=== PATIENT | male | born 1960 ===

== ENCOUNTER 2016-07-27 15:04 | Inpatient (IN) | payer MEDICAID ==
[2016-07-27 15:04] VITALS: BMI 25.9
--- NOTE | 2016-07-27 15:31 | ED PDOC ---
HPI:STROKE - Time Time: 15:29 - Historian Historian: Family - Chief Complaint Chief Complaint: Arm weakness, other (Seizure) - Onset Date: 07/27/16 Time: 14:00 - Timing Timing: Currently Symptomatic - Context Context: Sitting - Location Locate left: Upper extremity - Radiation Radiation: None - Severity of pain Maximum severity:: Moderate Pain Scale:: 0 Severity Current: Moderate Pain Scale:: 0 - Exacerbated by Exacerbated by:: Nothing - Relieved by Relieved by:: Nothing - TPA Positive for Contraindication: Yes Reason tPA is not being Administered: Improvement in weakness left upper ext NIHSS Stroke Scale - How Severe is the Stroke Level of Consciousness: 0=Alert LOC to Questions: 0=Both comments correct LOC to commands: 0=Obeys both correctly Best Gaze: 0=Normal Visual: 0=No visual loss Facial: 0=Normal Motor Arm - Left: 3=No effort against gravity (falls immediately) Motor Arm - Right: 0=No drift Motor Leg - Left: 0=No drift Motor Leg - Right: 0=No drift Limb Ataxia: 0=Absent Sensory: 0=Normal Best Language: 0=No aphasia Dysarthia: 0=Normal articulation Extinction & Inattention (Neglect): 0=Normal, no object Score: 3 rTPA Inclusion/Exclusion - Refusal of Treatment Patient Refused Treatment: No - Inclusion Criteria for Altepase Patient is 18 years or Older: Yes The Clinical Diagnosis of Ischemic Stroke That is Causing a Potentially Disabling Neurological Deficit: Yes Time of Onset is Well Established to be Less Than 270 Minute Before Treatment Would Begin: Yes Risk/Benefit Discussed With Patient/Family Member Present: Yes Past Medical History Vital Signs: Last Vital Signs Temp 98.1 F 07/27/16 15:10 Pulse 65 07/27/16 15:10 Resp 20 07/27/16 15:10 BP 146/88 07/27/16 15:10 Pulse Ox 100 07/27/16 15:10 - Medical History PMH: Asthma, CVA, Diabetes, HTN, Hypercholesterolemia, Seizures Denies: HIV, Chronic Kidney Disease - Family History Family History: States: Unknown Family Hx - Immunization History Hx Tetanus Toxoid Vaccination: Yes (>5yrs) Hx Influenza Vaccination: No Hx Pneumococcal Vaccination: No - Home Medications Home Medications: Ambulatory Orders Medication Instructions Recorded Amlodipine Besylate/Benazepr 1 cap PO DAILY 07/16/14 [Lotrel 5 mg-20 mg] Cyclobenzaprine HCl [Flexeril] 1 tab PO TID PRN #25 tab 07/16/14 Metformin Hydrochloride [Metformin] 500 mg PO BID 07/16/14 Naproxen [Naprosyn] 1 tab PO BID PRN #25 tab 07/16/14 oxyCODONE/Acetaminophen [Percocet 1 tab PO QID PRN #20 tab 07/16/14 5/325 mg Tab] Ibuprofen [Motrin] 600 mg PO Q6 #25 tab 02/09/15 Aspirin [Ecotrin] 81 mg PO DAILY 11/09/15 Docusate [Colace] 100 mg PO DAILY 11/09/15 Lorazepam [Ativan] 1 mg IV Q4 PRN 11/09/15 Lorazepam [Ativan] 2 mg IV Q4 PRN 11/09/15 Pravastatin Sodium [Pravachol] 10 mg PO HS 11/09/15 Topiramate [Topamax] 50 mg PO BID 11/09/15 Valproic Acid (As Sodium Salt) 500 mg IV Q12 11/09/15 [Valproate Sodium] Metoprolol Tartrate [Lopressor] 25 mg PO Q12 #0 tab 11/23/15 - Allergies Allergies/Adverse Reactions: Allergies Allergy/AdvReac Type Severity Reaction Status Date / Time No Known Allergies Allergy Verified 07/27/16 15:10 Review of Systems ROS Statement: Except As Marked, All Systems Reviewed And Found Negative Neurological: Positive for: Weakness, Seizures Physical Exam - Reviewed Nursing Documentation Reviewed: Yes Vital Signs Reviewed: Yes - Physical Exam Appears: Positive for: Non-toxic, No Acute Distress Head Exam: Positive for: ATRAUMATIC, NORMAL INSPECTION, NORMOCEPHALIC Skin: Positive for: Normal Color, Warm, DRY Eye Exam: Positive for: EOMI, Normal appearance, PERRL ENT: Positive for: Normal ENT Inspection Neck: Positive for: Normal, Painless ROM Cardiovascular/Chest: Positive for: Regular Rate, Rhythm Respiratory: Positive for: CNT, Normal Breath Sounds Gastrointestinal/Abdominal: Positive for: Normal Exam, Bowel Sounds, Soft Back: Positive for: Normal Inspection Extremity: Positive for: Normal ROM Neurologic/Psych: Positive for: Alert, Oriented, Motor/Sensory Deficits (Left upper ext weakness) - ECG O2 Sat by Pulse Oximetry: 100 Medical Decision Making Medical Decision Making: Re-eval 4PM slight movement left upper ext. Discussed with neuro Dr. Cid, based on improvement, not candidate for TPA. Disposition - Clinical Impression Clinical Impression: CVA (cerebral vascular accident), HTN (hypertension), DM2 (diabetes mellitus, type 2) - Patient ED Disposition Is Patient to be Admitted: Yes - Disposition Disposition Time: 16:07 Condition: FAIR - POA Present On Arrival: None
--- NOTE | 2016-07-27 15:57 | CT ---
PROCEDURE: CT HEAD WITHOUT CONTRAST. HISTORY: code stroke COMPARISON: None available. TECHNIQUE: Axial computed tomography images were obtained through the head/brain without intravenous contrast. Radiation dose: Total exam DLP = mGy-cm. FINDINGS: HEMORRHAGE: No intracranial hemorrhage. BRAIN: There is a moderate-sized area of encephalomalacia seen in the right frontoparietal region related to prior chronic infarct. There is additionally some mild encephalomalacia seen in the right internal capsule and basal ganglia region and white matter tracts. No intracranial hemorrhage is noted. Posterior fossa is limited by motion although no infarct is seen. No intracranial hemorrhage is identified. No cortical effacement is seen. No atrophy or chronic microvascular ischemic changes. VENTRICLES: Unremarkable. No hydrocephalus. CALVARIUM: Unremarkable. PARANASAL SINUSES: Minimal mucosal thickening. MASTOID AIR CELLS: Unremarkable as visualized. No inflammatory changes. OTHER FINDINGS: Retro-orbital regions are unremarkable. No extra-axial collections seen. IMPRESSION: No evidence of recent infarct or intracranial hemorrhage. Moderate area of chronic encephalomalacia in the right frontoparietal region with additional white matter infarcts or encephalomalacia in the right cerebral hemisphere. Mild scattered small vessel changes.
--- NOTE | 2016-07-27 16:01 | RAD ---
HISTORY: cva COMPARISON: No prior. FINDINGS: LUNGS: Mild crowding is seen at the lung bases. There appears to be scarring and/or prior trauma within the right mid lung field. Trachea is midline. PLEURA: No significant pleural effusion identified, no pneumothorax apparent. CARDIOVASCULAR: Normal. OSSEOUS STRUCTURES: Probable chronic posttraumatic or postsurgical changes of the right tejal thorax and lower left ribs. VISUALIZED UPPER ABDOMEN: Normal. OTHER FINDINGS: None. IMPRESSION: No appreciable CHF or infiltrate.
[2016-07-27 16:02] LABS: BASO # 0.2 K/uL (0.0-0.2); BASO % 2.9 % (0.0-2.0); EOS # 1.6 K/uL (0.0-0.7); EOS % 22.6 % (0.0-4.0); HEMATOCRIT 44.1 % (35.0-51.0); LYMPH # 2.2 K/uL (1.0-4.3); LYMPH % 31.9 % (20.0-40.0); MEAN CELL VOLUME 88.3 fl (80.0-94.0); MEAN CORPUSCULAR HGB CONC 32.8 g/dL (33.0-37.0); MEAN PLATELET VOLUME 11.4 fl (7.2-11.7); MONO # 0.6 K/uL (0.0-0.8); MONO % 8.4 % (0.0-10.0); NEUT # 2.4 K/uL (1.8-7.0); NEUT % 34.2 % (50.0-75.0); PLATELET COUNT 168 K/uL (130-400); RED CELL DISTRIBUTION WIDTH 14.8 % (11.5-14.5); WHITE BLOOD COUNT 6.9 K/uL (4.8-10.8)
[2016-07-27 16:11] LABS: ALB/GLOB RATIO 1.2 (1.0-2.1); ALKALINE PHOSPHATASE 75 U/L (38-126); ALT/SGPT 37 U/L (21-72); AST/SGOT 35 U/L (17-59); BILIRUBIN,TOTAL 0.5 mg/dl (0.2-1.3); BLOOD UREA NITROGEN 19 mg/dl (9-20); CALCIUM 10.9 mg/dL (8.4-10.2); CARBON DIOXIDE 22 mmol/L (22-30); CHLORIDE 110 mmol/L (98-107); CHOLESTEROL 107 mg/dL (0-199); GFR AFRICAN-AMERICAN > 60; GLUCOSE,RANDOM 162 mg/dL (75-110); POTASSIUM 4.2 MMOL/L (3.6-5.0); SODIUM 142 mmol/l (132-148)
[2016-07-27 16:49] LABS: PARTIAL THROMBOPLASTIN TIME 28.3 SECONDS (23.3-32.5)
[2016-07-27] MEDS ORDERED: levETIRAcetam 100 MG in Sodium Chloride 0.9% 100 ML IVPB ONE (17:50)
[2016-07-27] MEDS ORDERED: levETIRAcetam 1,000 MG in Sodium Chloride 0.9% 100 ML IVPB ONE (17:52)
--- NOTE | 2016-07-27 18:36 | CON ---
DATE: 07/27/2016 TIME OF EVALUATION: 6:00 p.m. REASON FOR THE CONSULTATION: Seizures. CHIEF COMPLAINT: The patient was brought in by family members with a history of witnessed left arm j erky movement which lasted for about a few minutes. Similar episodes had happened with a change in m ental status while he was in the Emergency Room. The patient was given Ativan to control his involun tary movements. HISTORY OF PRESENT ILLNESS: The patient is a 56-year-old male who had a stroke manifesting with left-sided hemiplegia, being admitted in [facility]; been transferred here in [facility]. Around that time he had seizures; been placed on dual medication, Topamax and Depakote. The pat ient controlled the seizures ever since, and this morning he had seizures and during the time offered breakfast. The patient was brought into the [facility]. He had another epis ode, which was recurrent. The patient was given Ativan at that point to break the seizures. PAST MEDICAL HISTORY: Stroke, frq-zchwqbm-ypgujmou mellitus, hypertension, dyslipidemia, seizures. PERSONAL HISTORY: Denies smoking or alcohol use. ALLERGIES: No known allergies. REVIEW OF SYSTEMS: As per H and P. MEDICATIONS: Medicine was switched to Keppra for his seizures. VITAL SIGNS: Blood pressure 147/79, mean arterial pressure of 101, respiratory rate 16, temperature afebrile. NECK: Supple. No carotid bruit. HEART SOUNDS: Irregular. CHEST: Fair air entry. EXTREMITIES: Left side diffuse atrophy both proximally and distally. NEUROLOGIC EXAMINATION: The patient is examined in the presence of his family members. He is awake, alert, oriented to person. He is communicable only in Croatian. He follows one-step command. MENTAL STATUS EXAMINATION: As stated above. CRANIAL NERVE EXAMINATION: Visual field intact. Pupil reactive to light, extraocular movements inta ct. No facial sensory deficit. Facial asymmetry manifesting with flattening of the left nasolabial fold. Hearing seems to be intact. Good gag. MOTOR EXAMINATION: Left-side hemiparesis, arm more than his legs. DEEP TENDON REFLEXES: Hyperreflexic on the left side. Left plantars are upgoing. SENSORY EXAMINATION: Decreased pain on his left side to compare with the right side. COORDINATION: Xwihsr-ajtb-girewa test is intact on the right side. Left side is dysmetria proportio adele to his weakness. GAIT: Deferred at this time. CONCLUSION: Upon reviewing his history and neurological examination, the patient has been presenting with recurrent seizures which is probably secondary from his old stroke. Medication may be subthera peutic. WORKUP: A CT of the head: Right frontoparietal encephalomalacia from his old stroke. BLOOD WORKUP: WBC 6.9, hemoglobin 14.5, hematocrit 44.1, platelet 168. PT 12.1, INR 1.16, PTT 28.3. Sodium 142, potassium 4.2, chloride 110, BUN 19, creatinine 0.9. GFR more than 60. Random glucose 162, calcium 10.9, cholesterol 107, LDL 48, HDL 36. RECOMMENDATIONS: 1. Because of Topamax and Depakote for his age, which may be not a promising drug for his seizure, I would like to switch to Keppra loading dose with 1000, followed with 500 mg twice a day. 2. EEG. 3. MRI of the brain also scheduled to rule out any ischemic process. The patient should be kept on fall precaution and DVT prophylaxis. If the patient is stable for the next 24-hour period with the Keppra, the patient can be discharged, and should have followup with it as outpatient. The Keppra dose at present, he is getting IV. That IV can be switched to p.o. the s day dose. Chano Cid MD cc: [id number] TT: 07/27/2016 18:36:48 Confirmation # [id number] Dictation # [id number]
[2016-07-27 19:15] LABS: BASOPHIL 3 % (0-2); EOSINOPHIL 22 % (0-7); NEUTROPHIL 36 % (42-75); REACTIVE LYMPHOCYTES 1 % (0-0); TOTAL CELLS COUNTED 100
[2016-07-27 19:16] LABS: LARGE PLATELETS PRESENT
[2016-07-27] MEDS ORDERED: levETIRAcetam 500 MG in Sodium Chloride 0.9% 100 ML IVPB SCH (21:00)
[2016-07-28] MEDS ORDERED: diaZEpam 10 mg/2 ml Inj IM PRN (05:29)
[2016-07-28] MEDS: levETIRAcetam 500 MG in Sodium Chloride 0.9% 100 ML IVPB SCH ×2 (06:05→18:15)
[2016-07-28 09:13] LABS: BASO # 0.2 K/uL (0.0-0.2); BASO % 1.9 % (0.0-2.0); EOS # 1.7 K/uL (0.0-0.7); EOS % 20.8 % (0.0-4.0); HEMATOCRIT 42.7 % (35.0-51.0); LYMPH # 2.3 K/uL (1.0-4.3); LYMPH % 27.2 % (20.0-40.0); MEAN CELL VOLUME 88.5 fl (80.0-94.0); MEAN CORPUSCULAR HEMOGLOBIN 28.6 pg (27.0-31.0); MEAN CORPUSCULAR HGB CONC 32.4 g/dL (33.0-37.0); MONO # 0.7 K/uL (0.0-0.8); MONO % 7.8 % (0.0-10.0); NEUT # 3.6 K/uL (1.8-7.0); NEUT % 42.3 % (50.0-75.0); NRBC % 0.2 % (0.0-0.0); PLATELET COUNT 170 K/uL (130-400); RED CELL DISTRIBUTION WIDTH 14.9 % (11.5-14.5); WHITE BLOOD COUNT 8.4 K/uL (4.8-10.8)
[2016-07-28 09:45] LABS: ALB/GLOB RATIO 1.1 (1.0-2.1); ALKALINE PHOSPHATASE 69 U/L (38-126); ALT/SGPT 40 U/L (21-72); AST/SGOT 24 U/L (17-59); BILIRUBIN,TOTAL 0.4 mg/dl (0.2-1.3); BLOOD UREA NITROGEN 15 mg/dl (9-20); CALCIUM 10.4 mg/dL (8.4-10.2); CARBON DIOXIDE 19 mmol/L (22-30); CHLORIDE 113 mmol/L (98-107); GFR AFRICAN-AMERICAN > 60; GLUCOSE,RANDOM 89 mg/dL (75-110); POTASSIUM 3.9 MMOL/L (3.6-5.0); SODIUM 137 mmol/l (132-148); TOTAL PROTEIN 7.2 G/DL (6.3-8.2)
--- NOTE | 2016-07-28 10:30 | CP.PCM.HP ---
History of Present Illness - History of Present Illness History of Present Illness: admitted for code bat after having seizure like actiivity at home. pt started w / seizures after having hemorrhagic cva 1 yr ago. was on topamax. was w/o seizures until yesterday when he had 3x and alled 911. ct results nad bw noted. depakote level is < 10. spoke w/ dr wahl-neuro who states this was not a cva but a seizure. mri/eeg can be done outpt if pt is stable. pt wishes to have venous duplex to assess for clots as he is c/o pain to lle and that is where clots have formed before. no swelling, neagative homans sign.rue/rle 4-5/ 5. lue2/5, lle 4/5. speech clear. mentating well. offered/refused carmen states he wants to go home and cont outpt rehab. has outpt pcp and neuro. no seizure like activity over night. Present on Admission - Present on Admission Any Indicators Present on Admission: Yes History of Uncontrolled Diabetes: Yes Review of Systems - Musculoskeletal Musculoskeletal: As Per HPI, Muscle Weakness - Neurological Neurological: As Per HPI, Convulsions, Focal Weakness, Weakness Past Patient History - Infectious Disease Hx of Infectious Diseases: None - Tetanus Immunizations Tetanus Immunization: Unknown - Past Medical History & Family History Past Medical History?: Yes - Past Social History Smoking Status: Never Smoked - CARDIAC Hx Cardiac Disorders: Yes Hx Angina: No Hx Atrial Fibrillation: No Hx Cardia Arrhythmia: No Hx Circulatory Problems: No Hx Congestive Heart Failure: No Hx Heart Attack: No Hx Heart Murmur: No Hx Heart Transplant: No Hx Hypercholesterolemia: Yes Hx Hypertension: Yes Hx Hypotension: No Hx Internal Defibrillator: No Hx Mitral Valve Prolapse: No Hx Pacemaker: No Hx Peripheral Edema: No Hx Peripheral Vascular Disease: No - PULMONARY Hx Respiratory Disorders: No Hx Asthma: Yes Hx Bronchitis: No Hx Chronic Obstructive Pulmonary Disease (COPD): No Hx Emphysema: No Hx Lung Cancer: No Hx Pneumonia: No Hx Pulmonary Edema: No Hx Pulmonary Embolism: No Hx Respiratory Aspiration: No Hx Respiratory Tract Infection: No Hx Sleep Apnea: No Hx Tuberculosis: No - NEUROLOGICAL Hx Neurological Disorder: Yes Hx Alzheimer's Disease: No HX Cerebrovascular Accident: Yes Hx Dementia: No Hx Dizziness: No Hx Meningitis: No Hx Migraine: No Hx Multiple Sclerosis: No Hx Paralysis: No Hx Parkinson's Disease: No Hx Seizures: Yes Hx Syncope: No Hx Transient Ischemic Attacks (TIA): No Hx Vertigo: No - HEENT Hx HEENT Problems: No Hx Blind: No Hx Cataracts: No Hx Deafness: No Hx Difficulty Chewing: No Hx Epistaxis: No Hx Glaucoma: No Hx Macular Degeneration: No Hx Sinusitis: No - RENAL Hx Chronic Kidney Disease: No Hx Dialysis: No Hx Kidney Stones: No Hx Neurogenic Bladder: No Hx Pyelonephritis: No Hx Renal (Kidney) Cancer: No Hx Renal Failure: No - ENDOCRINE/METABOLIC Hx Endocrine Disorders: No Hx Adrenal Cancer: No Hx Diabetes Insipidus: No Hx Diabetes Mellitus Type 1: No Hx Diabetes Mellitus Type 2: Yes Hx Hyperthyroidism: No Hx Hypothyroidism: No Hx Systemic Lupus Erythematosus: No - HEMATOLOGICAL/ONCOLOGICAL Hx Blood Disorders: No Hx AIDS: No Hx Anemia: No Hx Blood Transfusions: No Hx Blood Transfusion Reaction: No Hx Bruising: No Hx Cancer: No Hx Chemotherapy: No Hx Cirrhosis: No Hx Gum Bleeding: No Hx Hemophilia: No Hx Hepatitis A: No Hx Hepatitis B: No Hx Hepatitis C: No Hx Human Immunodeficiency Virus (HIV): No Hx Leukemia: No Hx Metastesis: No Hx Shingles: No Hx Sickle Cell Disease: No Hx Unexplained Bleeding: No Hx von Willebrand's Disease: No - INTEGUMENTARY Hx Dermatological Problems: No Hx Basil Cell: No Hx Pond: No Hx Cellulitis: No Hx Eczema: No Hx Melanoma: No Hx Psoriasis: No Hx Squamous Cell: No - MUSCULOSKELETAL/RHEUMATOLOGICAL Hx Musculoskeletal Disorders: No Hx Arthritis: No Hx Back Pain: No Hx Falls: Yes (when drunk) Hx Fractures: No Hx Gout: Yes (ribs old) Hx Herniated Disk: No Hx Myasthenia Gravis: No Hx Osteoarthritis: No Hx Osteomyelitis: No Hx Osteoporosis: No Hx Rhabdomyolysis: No Hx Rheumatoid Arthritis: No Hx Spinal Stenosis: No Hx Unsteady Gait: Yes - GASTROINTESTINAL Hx Gastrointestinal Disorders: No Hx Bowel Surgery: No Hx Clostridium Difficile: No Hx Colitis: No Hx Colostomy: No Hx Constipation: No Hx Crohn's Disease: No Hx Diarrhea: No Hx Diverticulitis: No Hx Esophageal Varices: No Hx Fatty Liver Disease: No Hx Gall Bladder Disease: No Hx Gastritis: No Hx Gastroesophageal Reflux: No Hx Hemorrhoids: No Hx Ileostomy: No Hx Irritable Bowel: No Hx Liver Failure: No Hx Nausea: No Hx Pancreatitis: No HX Swallowing Problems: No Hx Ulcer: No Hx Vomiting: No - GENITOURINARY/GYNECOLOGICAL Hx Genitourinary Disorders: No Hx Bladder Cancer: No Hx Bladder Stone: No Hx Hematuria: No Hx Incontinence: No Hx Prostate Cancer: No Hx Prostate Problems: No Hx Reproductive Disorders: No Hx Sexually Transmitted Disorders: No Hx Urinary Tract Infection: No - PSYCHIATRIC Hx Psychophysiologic Disorder: No Hx Anxiety: No Hx Bipolar Disorder: No Hx Depression: No Hx Emotional Abuse: No Hx Hallucinations: No Hx Panic Symptoms: No Hx Paranoia: No Hx Post Traumatic Stress Disorder: No Hx Psychosis: No Hx Physical Abuse: No Hx Schizophrenia: No Hx Sexual Abuse: No Hx Substance Use: No - SURGICAL HISTORY Hx Surgeries: No Hx Abdominal Aortic Aneurysm Repair: No Hx Amputation: No Hx Angiogram: No Hx Angioplasty: No Hx Appendectomy: No Hx Arteriovenous Shunt: No Hx Arthroscopy: No Hx Bile Duct Stent: No Hx Breast Biopsy: No Hx Cataract Extraction: No Hx Cardiac Catheterization: No Hx Carotid Endarterectomy: No Hx Section: No Hx Cholecystectomy: No Hx Coronary Artery Bypass Graft: No Hx Coronary Stent: No Hx Dilation and Curettage: No Hx Eye Surgery: No Hx Femoral-Popliteal Bypass Graft: No Hx Gastric Bypass Surgery: No Hx Herniorrhaphy: No Hx Hysterectomy: No Hx Joint Replacement: No Hx Kidney Transplant: No Hx Liver Transplant: No Hx Mastectomy: No Hx Musculoskeletal Surgery: No Hx Open Heart Surgery: No Hx Open Reduction Internal Fixation: No Hx Orthopedic Surgery: No Hx Parathyroidectomy: No Hx Penile Implant: No Hx Pulmonary Surgery: No Hx Splenectomy: No Hx Thyroidectomy: No Hx Tonsillectomy: No Hx Tubal Ligation: No Hx Valve Replacement: No Hx Vascular Surgery: No Hx Vascular Access Device: No Other/Comment: Hx of rib and lung surgery - ANESTHESIA Hx Anesthesia: No Hx Anesthesia Reactions: No Hx Malignant Hyperthermia: No Has any member of the family had a problem w/ anesthesia?: No Meds Home Medications: Home Medication List Medication Instructions Recorded Confirmed Type Aspirin [Ecotrin] 81 mg PO DAILY #30 tabec 07/28/16 Rx Levetiracetam [Keppra] 500 mg PO BID #60 tablet 07/28/16 Rx Allergies/Adverse Reactions: Allergies Allergy/AdvReac Type Severity Reaction Status Date / Time No Known Allergies Allergy Verified 07/27/16 15:10 Physical Exam - Constitutional Appears: Well, Non-toxic, No Acute Distress - Head Exam Head Exam: ATRAUMATIC, NORMAL INSPECTION, NORMOCEPHALIC - Eye Exam Eye Exam: EOMI, Normal appearance, PERRL Pupil Exam: NORMAL ACCOMODATION, PERRL - ENT Exam ENT Exam: Mucous Membranes Moist, Normal Exam - Neck Exam Neck exam: Positive for: Normal Inspection - Respiratory Exam Respiratory Exam: Clear to Auscultation Bilateral, NORMAL BREATHING PATTERN - Cardiovascular Exam Cardiovascular Exam: REGULAR RHYTHM, RRR, +S1, +S2 - GI/Abdominal Exam GI & Abdominal Exam: Normal Bowel Sounds, Soft. absent: Tenderness - Extremities Exam Extremities exam: Positive for: normal capillary refill, normal inspection, pedal pulses present Additional comments: as per hpi - Back Exam Back exam: NORMAL INSPECTION - Neurological Exam Neurological exam: Abnormal Gait, Alert, CN II-XII Intact, Oriented x3, Reflexes Normal - Psychiatric Exam Psychiatric exam: Normal Affect, Normal Mood - Skin Skin Exam: Dry, Intact, Normal Color, Warm Results - Vital Signs Recent Vital Signs: Last Vital Signs Temp 97.4 F L 07/28/16 09:11 Pulse 53 L 07/28/16 09:14 Resp 20 07/28/16 09:11 BP 121/70 07/28/16 09:14 Pulse Ox 97 07/28/16 09:11 - Labs Result Diagrams: 07/28/16 08:00 07/28/16 08:00 Labs: Laboratory Results - last 24 hr 07/27/16 07/27/16 07/27/16 16:40 16:57 17:45 WBC RBC Hgb Hct MCV MCH MCHC RDW Plt Count MPV Neut % (Auto) Lymph % (Auto) Roberts % (Auto) Eos % (Auto) Baso % (Auto) Neut # Lymph # Roberts # Eos # Baso # Sodium Potassium Chloride Carbon Dioxide Anion Gap BUN Creatinine Est GFR ( Amer) Est GFR (Non-Af Amer) POC Glucose (mg/dL) Random Glucose Calcium Total Bilirubin AST ALT Alkaline Phosphatase Total Protein Albumin Globulin Albumin/Globulin Ratio Prolactin 10.3 Valproic Acid < 10.0 L Blood Type O POSITIVE Antibody Screen Negative BBK History Checked No verified bt 07/28/16 07/28/16 05:24 08:00 WBC 8.4 RBC 4.83 Hgb 13.8 Hct 42.7 MCV 88.5 MCH 28.6 MCHC 32.4 L RDW 14.9 H Plt Count 170 MPV 11.0 Neut % (Auto) 42.3 L Lymph % (Auto) 27.2 Roberts % (Auto) 7.8 Eos % (Auto) 20.8 H Baso % (Auto) 1.9 Neut # 3.6 Lymph # 2.3 Roberts # 0.7 Eos # 1.7 H Baso # 0.2 Sodium 137 Potassium 3.9 Chloride 113 H Carbon Dioxide 19 L Anion Gap 9 L BUN 15 Creatinine 0.8 Est GFR ( Amer) > 60 Est GFR (Non-Af Amer) > 60 POC Glucose (mg/dL) 85 Random Glucose 89 Calcium 10.4 H Total Bilirubin 0.4 AST 24 ALT 40 Alkaline Phosphatase 69 Total Protein 7.2 Albumin 3.8 Globulin 3.4 Albumin/Globulin Ratio 1.1 Prolactin Valproic Acid Blood Type Antibody Screen BBK History Checked Assessment & Plan (1) CVA (cerebral vascular accident) Assessment and Plan: cont asa, cleared by neuro to be dc outpt pt/ot outpt mri, eeg Status: Acute (2) DM2 (diabetes mellitus, type 2) Assessment and Plan: cont home meds fsbg Status: Acute (3) DVT prophylaxis Assessment and Plan: scd and aehose lovenox if admitted over 24h Status: Acute (4) Seizures Assessment and Plan: dc current treatment start keppra loading dose then 500po bid as per dr francisco outpt mri/eeg Status: Acute (5) Leg pain Assessment and Plan: venous duplex ordered treat as indicated ?? neuropathy (more likely) vs dvt Status: Acute Decision To Admit - Pt Status Changed To: Hospital Disposition Of: Inpatient - Admit Certification Admit to Inpatient:: After my assessment, the patient will require hospitalization for at least two midnights. This is because of the severity of symptoms shown, intensity of services needed, and/or the medical risk in this patient being treated as an outpatient. - . Bed Request Type: Telemetry Admitting Physician: Joel Uribe
--- NOTE | 2016-07-28 14:14 | US ---
PROCEDURE: Bilateral lower extremity venous duplex Doppler. HISTORY: leg pain, cva COMPARISON: None available. TECHNIQUE: Bilateral common femoral, superficial femoral, popliteal and posterior tibial veins were evaluated. Flow was assessed with color Doppler, compressibility, assessment of phasic flow and augmentation response. FINDINGS: COMMON FEMORAL VEIN: Right CFV: Unremarkable. Left CFV: Unremarkable. SUPERFICIAL FEMORAL VEIN: Right SFV: Unremarkable. Left SFV: Unremarkable. POPLITEAL VEIN: Right Popliteal: Unremarkable. Left Popliteal: Unremarkable. POSTERIOR TIBIAL VEIN: Right PTV: Unremarkable. Left PTV: Unremarkable. OTHER FINDINGS: None. IMPRESSION: No evidence of deep venous thrombosis.
[2016-07-28 15:19] LABS: TOTAL CELLS COUNTED 100
[2016-07-28 15:20] LABS: EOSINOPHIL 15 % (0-7); NEUTROPHIL 58 % (42-75)
--- NOTE | 2016-07-28 18:52 | PCM.RRTMUL ---
FOAM GUN OPERATOR Nurse Assessment - Vital Signs Blood Pressure:: 122/63 Pulse Rate:: 63 Respiratory Rate:: 20 Temperature:: 98.4 F Responder Note - Time FOAM GUN OPERATOR was called Time FOAM GUN OPERATOR was called:: 18:45 - Location Location: [facility] Discovered by:: PITER Garcia Primary Nurse:: PITER Garcia - FOAM GUN OPERATOR Team FOAM GUN OPERATOR Leader:: Ashley Perdomo Resident:: Cole De La Cruz - Vital Signs at Initial Assessment Blood Pressure:: 171/92 Respiratory Rate:: 12 O2 Sat by Pulse Oximetry:: 100 - Chest Pain Chest Pain:(If answer is yes, complete next 2 questions): No - Seizure Seizure:: No Summary - Summary of Event Summary of Event: FOAM GUN OPERATOR Time: 6:45 pm FOAM GUN OPERATOR Location: [facility] FOAM GUN OPERATOR Arrival: 6:46 FOAM GUN OPERATOR Reason: "Seizure" FOAM GUN OPERATOR Vitals: T- 98.4 BP- 171/92 HR- 63 RR- 12 O2- 100% on RA S: FOAM GUN OPERATOR called by PITER Garcia after family members altered by family members that patient may be having a seizure. Pt. seen at bedside AAOx3 in NAD at baseline mental status and physical activity as per PITER Garcia reports that his left hand and arm are twitching and has a sensation of heaviness and being flushed on the left side. O: General: AAOx3, NAD Heent: AYE OLIVAS Cardio: S1-S2, RRR Resp: CTAB Neuro: Rt upper and lower extremity 5/5 Lt upper and lower extremity 3/5 Mild tremor left hand worse on movement FOAM GUN OPERATOR Interventions: 1- Ativan 1mg IVP Stat 2- Consult with Neurology Dr. Cid- Recommend stat does of Keppra 500mg IVPB 3- Increase Keppra from 500mg to 750mg starting tomorrow 07/29/16 4- Nasal Canular oxygen 2L FOAM GUN OPERATOR outcome: 1- Pt. stable 2- Repeat BP-147/85 A/P: 56 y.o. male with hx of CVA and Seizure disorder with Aura-like symptoms in stable condition 1- Pt. to continue current management and Increase Keppra from 500mg to 750mg starting tomorrow 07/29/16 2- Pt. for planned MRI and EEG as per Dr. Cid tomorrow FOAM GUN OPERATOR Leader: Dr. Perdomo FOAM GUN OPERATOR Resident: Dr. De La Cruz
[2016-07-28] MEDS ORDERED: levETIRAcetam 500 MG in Sodium Chloride 0.9% 100 ML IVPB ONE (18:53)
--- NOTE | 2016-07-28 19:05 | PN ---
DATE: 07/28/2016 NEUROLOGICAL PROBLEM: Recurrent seizures from his old stroke, probably subtherapeutic dose of antiep ileptic drugs. PHYSICAL EXAMINATION: VITAL SIGNS: Blood pressure 122/63, mean arterial pressure of 82, respiratory rate 16, temperature a febrile. NECK: Supple. NEUROLOGIC: The patient is more awake, alert, oriented to person, place. The patient is communicabl e in Slovenian. Left hemiparesis, which is unchanged. No seizures since my first examination. The patient is tolerating well with the Keppra. Continue the Keppra for now. The earlier medication of Depakote and Topamax were discontinued because of potential side effect as well as drug interacti ons. The patient is stable. The patient's Keppra dose can be adjusted if any seizure happens in fut ure. Chano Cid MD cc: [id number] TT: 07/28/2016 19:04:49 Confirmation # [id number] Dictation # [id number]
[2016-07-28] MEDS ORDERED: Pravastatin Sodium 40 MG TAB PO SCH (22:00)
[2016-07-28] MEDS: Nasal Spray(Ocean spray) NAS PRN (23:33)
[2016-07-29] MEDS: Nasal Spray(Ocean spray) NAS PRN (06:44)
--- NOTE | 2016-07-29 07:24 | CP.PCM.PN ---
Subjective - Date & Time of Evaluation Date of Evaluation: 07/29/16 Time of Evaluation: 07:24 - Subjective Subjective: no complaints/distress no f/c, n/v/d for mri/eeg today and possible dc today still w/ lue weakness but no distress Objective - Vital Signs/Intake and Output Vital Signs (last 24 hours): Temp Pulse Resp BP Pulse Ox 97.9 F 52 L 18 133/76 97 07/29/16 05:00 07/29/16 05:00 07/29/16 05:00 07/29/16 05:00 07/29/16 05:00 - Medications Medications: Current Medications Amlodipine Besylate (Norvasc) 10 mg PO DAILY [facility] Last Admin: 07/28/16 09:12 Dose: 10 mg Aspirin (Ecotrin) 81 mg PO DAILY [facility] Last Admin: 07/28/16 09:11 Dose: 81 mg Diazepam (Valium) 10 mg IM PRN PRN PRN Reason: Seizure activity Levetiracetam 750 mg/ Sodium (Chloride) 107.5 mls @ 210 mls/hr IVPB 0700,1900 [facility] Last Admin: 07/29/16 06:36 Dose: 210 mls/hr Lisinopril (Zestril) 10 mg PO DAILY [facility] Last Admin: 07/28/16 09:14 Dose: 10 mg Pravastatin Sodium (Pravachol) 40 mg PO HS [facility] Last Admin: 07/28/16 22:59 Dose: 40 mg Sodium Chloride ([place] Nasal [place]) 1 sprays MOSES Q4 PRN PRN Reason: Nasal congestion Last Admin: 07/29/16 06:44 Dose: 1 spray - Labs Labs: 07/28/16 08:00 07/28/16 08:00 PT 12.1 SECONDS (9.6-11.2) H 07/27/16 15:49 INR 1.16 (0.92-1.08) H 07/27/16 15:49 APTT 28.3 SECONDS (23.3-32.5) 07/27/16 15:49 - Constitutional Appears: Well, Non-toxic, No Acute Distress - Head Exam Head Exam: ATRAUMATIC, NORMAL INSPECTION, NORMOCEPHALIC - Eye Exam Eye Exam: EOMI, Normal appearance, PERRL Pupil Exam: NORMAL ACCOMODATION, PERRL - ENT Exam ENT Exam: Mucous Membranes Moist, Normal Exam - Neck Exam Neck Exam: Full ROM, Normal Inspection. absent: Lymphadenopathy - Respiratory Exam Respiratory Exam: Clear to Ausculation Bilateral, NORMAL BREATHING PATTERN - Cardiovascular Exam Cardiovascular Exam: REGULAR RHYTHM, RRR, +S1, +S2. absent: Murmur - GI/Abdominal Exam GI & Abdominal Exam: Soft, Normal Bowel Sounds. absent: Tenderness - Rectal Exam Rectal Exam: NORMAL INSPECTION - Extremities Exam Extremities Exam: Full ROM, Normal Capillary Refill, Normal Inspection. absent : Joint Swelling, Pedal Edema - Back Exam Back Exam: NORMAL INSPECTION - Neurological Exam Neurological Exam: Alert, Awake, CN II-XII Intact, Normal Gait, Oriented x3 Neuro motor strength exam: Left Upper Extremity: 2/1, Right Upper Extremity: 5, Left Lower Extremity: 4, Right Lower Extremity: 5 - Psychiatric Exam Psychiatric exam: Normal Affect, Normal Mood - Skin Skin Exam: Dry, Intact, Normal Color, Warm Assessment and Plan (1) CVA (cerebral vascular accident) Status: Acute (2) DM2 (diabetes mellitus, type 2) Status: Acute (3) DVT prophylaxis Status: Acute (4) Seizures Status: Acute (5) Leg pain Status: Acute - Assessment and Plan (Free Text) Assessment: (1) CVA (cerebral vascular accident) Assessment and Plan: cont asa, cleared by neuro to be dc outpt pt/ot outpt mri, eeg Status: Acute (2) DM2 (diabetes mellitus, type 2) Assessment and Plan: cont home meds fsbg Status: Acute (3) DVT prophylaxis Assessment and Plan: scd and aehose lovenox if admitted over 24h Status: Acute (4) Seizures Assessment and Plan: dc current treatment start keppra loading dose then 500po bid as per dr francisco outpt mri/eeg Status: Acute (5) Leg pain Assessment and Plan: venous duplex ordered treat as indicated likely rueropathy, dvt study negative Status: Acute
[2016-07-29 07:27] LABS: BASO # 0.2 K/uL (0.0-0.2); BASO % 2.1 % (0.0-2.0); EOS # 1.7 K/uL (0.0-0.7); EOS % 21.7 % (0.0-4.0); HEMATOCRIT 41.5 % (35.0-51.0); LYMPH # 2.5 K/uL (1.0-4.3); LYMPH % 30.6 % (20.0-40.0); MEAN CELL VOLUME 88.4 fl (80.0-94.0); MEAN CORPUSCULAR HEMOGLOBIN 28.5 pg (27.0-31.0); MEAN CORPUSCULAR HGB CONC 32.3 g/dL (33.0-37.0); MEAN PLATELET VOLUME 11.5 fl (7.2-11.7); MONO # 0.8 K/uL (0.0-0.8); MONO % 9.8 % (0.0-10.0); NEUT # 2.9 K/uL (1.8-7.0); NEUT % 35.8 % (50.0-75.0); NRBC % 0.1 % (0.0-0.0); PLATELET COUNT 168 K/uL (130-400); RED CELL DISTRIBUTION WIDTH 14.7 % (11.5-14.5)
[2016-07-29 07:54] LABS: ALB/GLOB RATIO 1.1 (1.0-2.1); ALKALINE PHOSPHATASE 66 U/L (38-126); ALT/SGPT 42 U/L (21-72); AST/SGOT 30 U/L (17-59); BILIRUBIN,TOTAL 0.4 mg/dl (0.2-1.3); BLOOD UREA NITROGEN 15 mg/dl (9-20); CALCIUM 10.6 mg/dL (8.4-10.2); CARBON DIOXIDE 21 mmol/L (22-30); CHLORIDE 111 mmol/L (98-107); GFR AFRICAN-AMERICAN > 60; GLUCOSE,RANDOM 90 mg/dL (75-110); POTASSIUM 3.9 MMOL/L (3.6-5.0); SODIUM 146 mmol/l (132-148)
[2016-07-29] MEDS ORDERED: diaZEpam 10 mg/2 ml Inj IM ONE (09:20)
--- NOTE | 2016-07-29 09:45 | CARD ---
APPROVED REPORT EKG Measurement Heart [id number] [place] [id number] [id number] <Conclusion> Normal sinus rhythm Left axis deviation Abnormal ECG
[2016-07-29 11:40] LABS: BASOPHIL 2 % (0-2); EOSINOPHIL 17 % (0-7); LARGE PLATELETS PRESENT; NEUTROPHIL 29 % (42-75); REACTIVE LYMPHOCYTES 2 % (0-0); TOTAL CELLS COUNTED 100
--- NOTE | 2016-07-29 14:34 | PQF GENQUE ---
Frankie Varma [employer], Acute CVA ruled in or Acute CVA ruled out? -H and P and progress note: current diagnoses of CVA: Acute versus : -Neuro consult: Upon reviewing his history and neurological examination, the patient has been presenting with recurrent seizures which is probably secondary from his old stroke. Medication may be subtherapeutic. WORKUP: A CT of the head: Right frontoparietal encephalomalacia from his old stroke. RECOMMENDATIONS: 1. Because of Topamax and Depakote for his age, which may be not a promising drug for his seizure , I would like to switch to Keppra loading dose with 1000, followed with 500 mg twice a day. 2. EEG. 3. MRI of the brain also scheduled to rule out any ischemic process This form is a permanent part of the medical record Clarification of your documentation is requested to better reflect the severity of illness and intensity of treatment of your patient. Indicators present [] Specify: [] [] Specify: [] [] Specify: [] [] Specify: [] Location in the medical record that reflects the above clinical findings: [] Treatment Provided: [] PHYSICIAN'S RESPONSE Based on your medical judgment of the clinical indicators outlined above please clarify the following: [] Practitioner response as per Dr. Cid-Neuro pt did not have CVA-had seizure. CVA r/o [] If unable to determine, please check the box, sign and date. Present On Admission (POA) Indicator: [] Present at the time of admission [] Not present at the time of admission [] Clinically Undetermined In responding to this query, please exercise your independent professional judgment. The fact that a question is asked does not imply that any particular answer is desired or expected. Thank you for your clarification on this documentation. If you have any questions please call. * Thank you, Sharita Bowie RN BSN ext. #[phone] MTDD
--- NOTE | 2016-07-29 14:51 | CP.PCM.DIS ---
Provider - Provider Date of Admission: 07/27/16 16:01 Attending physician: Joel Uribe MD Primary care physician: Aneesh Vasquez MD Time Spent in preparation of Discharge (in minutes): 15 Diagnosis - Discharge Diagnosis (1) CVA (cerebral vascular accident) Status: Acute (2) DM2 (diabetes mellitus, type 2) Status: Acute (3) DVT prophylaxis Status: Acute (4) Seizures Status: Acute (5) Leg pain Status: Acute Hospital Course - Lab Results Lab Results: Most Recent Lab Values WBC 8.0 K/uL (4.8-10.8) 07/29/16 06:40 RBC 4.69 Mil/uL (4.40-5.90) 07/29/16 06:40 Hgb 13.4 g/dL (12.0-18.0) 07/29/16 06:40 Hct 41.5 % (35.0-51.0) 07/29/16 06:40 MCV 88.4 fl (80.0-94.0) 07/29/16 06:40 MCH 28.5 pg (27.0-31.0) 07/29/16 06:40 MCHC 32.3 g/dL (33.0-37.0) L 07/29/16 06:40 RDW 14.7 % (11.5-14.5) H 07/29/16 06:40 Plt Count 168 K/uL (130-400) 07/29/16 06:40 MPV 11.5 fl (7.2-11.7) 07/29/16 06:40 Neut % (Auto) 35.8 % (50.0-75.0) L 07/29/16 06:40 Lymph % (Auto) 30.6 % (20.0-40.0) 07/29/16 06:40 [place] % (Auto) 9.8 % (0.0-10.0) 07/29/16 06:40 Eos % (Auto) 21.7 % (0.0-4.0) H 07/29/16 06:40 Baso % (Auto) 2.1 % (0.0-2.0) H 07/29/16 06:40 Neut # 2.9 K/uL (1.8-7.0) 07/29/16 06:40 Lymph # 2.5 K/uL (1.0-4.3) 07/29/16 06:40 [place] # 0.8 K/uL (0.0-0.8) 07/29/16 06:40 Eos # 1.7 K/uL (0.0-0.7) H 07/29/16 06:40 Baso # 0.2 K/uL (0.0-0.2) 07/29/16 06:40 Neutrophils % (Manual) 29 % (42-75) L 07/29/16 06:40 Lymphocytes % (Manual) 39 % (20-50) 07/29/16 06:40 Reactive Lymphs % 2 % (0-0) H 07/29/16 06:40 Monocytes % (Manual) 11 % (0-10) H 07/29/16 06:40 Eosinophils % (Manual) 17 % (0-7) H 07/29/16 06:40 Basophils % (Manual) 2 % (0-2) 07/29/16 06:40 Platelet Estimate Normal (NORMAL) 07/29/16 06:40 Large Platelets Present 07/29/16 06:40 RBC Morphology Normal (NORMAL) 07/28/16 08:00 Anisocytosis (manual) Slight 07/29/16 06:40 PT 12.1 SECONDS (9.6-11.2) H 07/27/16 15:49 INR 1.16 (0.92-1.08) H 07/27/16 15:49 APTT 28.3 SECONDS (23.3-32.5) 07/27/16 15:49 Sodium 146 mmol/l (132-148) 07/29/16 06:40 Potassium 3.9 MMOL/L (3.6-5.0) 07/29/16 06:40 Chloride 111 mmol/L (98-107) H 07/29/16 06:40 Carbon Dioxide 21 mmol/L (22-30) L 07/29/16 06:40 Anion Gap 18 (10-20) 07/29/16 06:40 BUN 15 mg/dl (9-20) 07/29/16 06:40 Creatinine 0.8 mg/dL (0.8-1.5) 07/29/16 06:40 Est GFR ( Amer) > 60 07/29/16 06:40 Est GFR (Non-Af Amer) > 60 07/29/16 06:40 POC Glucose (mg/dL) 102 mg/dL (65-110) 07/29/16 05:38 Random Glucose 90 mg/dL (75-110) 07/29/16 06:40 Hemoglobin A1c 5.6 % (4.2-6.5) 07/27/16 15:49 Calcium 10.6 mg/dL (8.4-10.2) H 07/29/16 06:40 Total Bilirubin 0.4 mg/dl (0.2-1.3) 07/29/16 06:40 AST 30 U/L (17-59) 07/29/16 06:40 ALT 42 U/L (21-72) 07/29/16 06:40 Alkaline Phosphatase 66 U/L (38-126) 07/29/16 06:40 Troponin I 0.0130 ng/mL (0.00-0.120) 07/27/16 15:49 Total Protein 7.0 G/DL (6.3-8.2) 07/29/16 06:40 Albumin 3.6 g/dL (3.5-5.0) 07/29/16 06:40 Globulin 3.3 gm/dL (2.2-3.9) 07/29/16 06:40 Albumin/Globulin Ratio 1.1 (1.0-2.1) 07/29/16 06:40 Triglycerides 68 mg/DL (0-149) 07/27/16 15:49 Cholesterol 107 mg/dL (0-199) 07/27/16 15:49 LDL Cholesterol Direct 48 mg/dL (0-129) 07/27/16 15:49 HDL Cholesterol 36 MG/DL (30-70) 07/27/16 15:49 Prolactin 10.3 ng/mL (3.7-17.9) 07/27/16 16:40 Valproic Acid < 10.0 ug/mL (50.0-100.0) L 07/27/16 17:45 Blood Type O POSITIVE 07/27/16 16:57 Antibody Screen Negative 07/27/16 16:57 BBK History Checked No verified bt 07/27/16 16:57 Discharge Exam - Head Exam Head Exam: ATRAUMATIC, NORMAL INSPECTION, NORMOCEPHALIC Discharge Plan - Discharge Medications Prescriptions: RX: Aspirin [Ecotrin] 81 mg PO DAILY #30 tabec Levetiracetam [Keppra] 750 mg PO BID #60 tablet - Follow Up Plan Condition: FAIR Disposition: HOME/ ROUTINE Additional Instructions: eeg completed, f/u results outpt. mri unable to be completed, machine nonfunctional r/t power outage. can be completed outpt as per dr francisco. acute cva r/o by dr francisco-neuro final dx-seizure. director title last night noted-keppra incr to 750bid and extra loading dose noted nod ashley pt at his base line Referrals: Aneesh Vasquez MD [Primary Care Provider] -
[2016-07-29 15:33] VITALS: PULSE 63; RESP 20; O2SAT 97
[2016-07-29 17:10] VITALS: BP 127/85; TEMP 98
--- NOTE | 2016-07-29 17:31 | EEG ---
DATE: 07/27/2016 This is a 16-channel electroencephalogram of awake and drowsy adult. During the study, photic stimul ation was performed. Hyperventilation was not performed. The resting electroencephalogram consists of 20-30 microvolt low amplitude diffuse 5-7 Hz high theta activity seen at parietal and occipital leads. This slow activity is continuously noted from the beg inning, x 2-3 Hz low amplitude delta activity seen, which is consistent with early drowsiness. The p hotic stimulation did not evoke driving response noted at 2-20 Hz. IMPRESSION: This is abnormal electroencephalogram because of persistent slowing throughout the recor d suggestive of bilateral cerebral dysfunction. This is probably secondary to metabolic vascular or degenerative process. Please correlate the finding with the neurologic and radiological studies. Chano Cid MD cc: [id number] TT: 07/29/2016 17:30:04 Confirmation # [id number] Dictation # [id number] yonathan
--- NOTE | 2016-07-29 18:30 | PN ---
DATE: 07/29/2016 NEUROLOGICAL PROBLEM: Recurrent seizures. Stroke manifesting with left hemiparesis. PHYSICAL EXAMINATION: VITAL SIGNS: Blood pressure 127/85, mean arterial pressure of 99, respiratory rate 16, temperature 9 8 degrees Fahrenheit. NEUROLOGIC: The patient is more awake, alert, oriented to person, place, and time. Speech is clear. The patient feels good after increasing the Keppra dose to 750 twice a day. Electroencephalogram also reviewed, showed generalized slow activities without any paroxysmal activit ies noted. At this point, the patient should continue Keppra 750 mg twice a day. If he is stable, the patient c an be discharged and should have followup visit with me as an outpatient. Chano Cid MD cc: [id number] TT: 07/29/2016 18:29:36 Confirmation # [id number] Dictation # [id number] namrata
== END 2016-07-29 18:00 | disposition home or self-care (01) | DRG 890 ==
LOC: H.ER 15:04 → H.ERHOLD 16:01 → H.TEL 17:42
PROVIDERS: ADMIT Family Medicine; ATTEND Family Medicine
DX: G40.909 Epilepsy, unspecified, not intractable, without status epilepticus (principal); G93.89 Other specified disorders of brain; I69.354 Hemiplegia and hemiparesis following cerebral infarction affecting left non-dominant side; I10 Essential (primary) hypertension; M25.562 Pain in left knee; E11.9 Type 2 diabetes mellitus without complications; E78.00 Pure hypercholesterolemia, unspecified; E78.5 Hyperlipidemia, unspecified; G62.9 Polyneuropathy, unspecified; J45.909 Unspecified asthma, uncomplicated

== ENCOUNTER 2017-07-26 00:03 | Inpatient (IN) | payer MEDICAID ==
[2017-07-26 00:11] VITALS: BMI 27.0
[2017-07-26] MEDS ORDERED: Digoxin 500 mcg/2ml (0.5 mg/2ml) Inj IVP STA (00:59)
[2017-07-26] MEDS ORDERED: Digoxin 500 mcg/2ml (0.5 mg/2ml) Inj ONE (01:15)
[2017-07-26 01:21] LABS: BASO # 0.1 K/uL (0.0-0.2); BASO % 1.2 % (0.0-2.0); EOS # 0.7 K/uL (0.0-0.7); EOS % 8.2 % (0.0-4.0); LYMPH # 1.5 K/uL (1.0-4.3); LYMPH % 16.1 % (20.0-40.0); MEAN CORPUSCULAR HEMOGLOBIN 29.3 pg (27.0-31.0); MEAN PLATELET VOLUME 10.1 fl (7.2-11.7); MONO # 0.8 K/uL (0.0-0.8); MONO % 8.4 % (0.0-10.0); NEUT % 66.1 % (50.0-75.0); NRBC % 0.2 % (0.0-0.0); RBC 5.44 Mil/uL (4.40-5.90); RED CELL DISTRIBUTION WIDTH 14.9 % (11.5-14.5)
[2017-07-26 01:25] LABS: MEAN CELL VOLUME 86.3 fl (80.0-94.0)
[2017-07-26 01:28] LABS: INR 1.1 (0.9-1.2); PARTIAL THROMBOPLASTIN TIME 36.8 Seconds (25.6-37.1); PROTHROMBIN TIME 12.3 Seconds (9.8-13.1)
[2017-07-26 01:29] VITALS: PULSE 120
[2017-07-26 01:36] LABS: ALB/GLOB RATIO 1.1 (1.0-2.1); ALBUMIN 4.4 g/dL (3.5-5.0); CALCIUM 11.1 mg/dL (8.4-10.2); GFR AFRICAN-AMERICAN > 60; GFR NON-AFRICAN AMERICAN > 60
--- NOTE | 2017-07-26 01:45 | CT ---
EXAM: CT Head Without Intravenous Contrast CLINICAL HISTORY: 57 years old, male; Signs and symptoms; Other: Seizure; Patient HX: Previous stroke TECHNIQUE: Axial computed tomography images of the head/brain without intravenous contrast. All CT scans at this facility use one or more dose reduction techniques, viz.: automated exposure control; ma/kV adjustment per patient size (including targeted exams where dose is matched to indication; i.e. head); or iterative reconstruction technique. Coronal and sagittal reformatted images were created and reviewed. COMPARISON: No relevant prior studies available. FINDINGS: Brain: There is a focus of decreased density and volume loss in the right frontal lobe, consistent with encephalomalacia from a remote infarct or other insult. Small chronic right occipital lobe infarct. There is mild diffuse cerebral atrophy present, consistent with this patient's age. There is mild diffuse heterogeneity of the white matter attenuation, consistent with chronic white matter ischemic changes. No hemorrhage. No acute infarct. Ventricles: The ventricular system demonstrates mild diffuse compensatory enlargement. Bones/joints: Unremarkable. No acute fracture. Soft tissues: Unremarkable. Sinuses: Unremarkable as visualized. No acute sinusitis. Mastoid air cells: Unremarkable as visualized. No mastoid effusion. IMPRESSION: Age-related atrophy and chronic white matter ischemic changes, with no evidence of an acute intracranial abnormality. Chronic right frontal and occipital lobe infarcts.
--- NOTE | 2017-07-26 02:38 | ED PDOC ---
HPI: Seizure Time Seen by Provider: 07/26/17 00:20 Chief Complaint (Nursing): Seizure Chief Complaint (Provider): Seizure History Per: Patient History/Exam Limitations: no limitations Additional History Per: Family ( and daughter) Additional Complaint(s): 57 y/o male with past medical history of seizure stroke dyslipidemia, and hypertension presents to the ED for evaluation of a seizure activity prior to arrival. witnessed the seizure and it lasted about 1-2 minutes. and daughter noted that patient became purple and thus called 911. He was administered Ativan 2mg IV in field for seizure activity. . On arrival to ED patient is breathing and is at baseline. He has left sided residual focal deficit, which is chronic for him. Patient reports that he is taking Keppra as prescribed. Last seizure was in 2017. PMD: Aneesh Vasquez MD Past Medical History Reviewed: Historical Data, Nursing Documentation, Vital Signs Vital Signs: Last Vital Signs Temp 98.2 F 07/26/17 08:00 Pulse 57 L 07/26/17 12:48 Resp 12 07/26/17 09:31 BP 103/53 L 07/26/17 12:48 Pulse Ox 95 07/26/17 09:31 - Medical History PMH: Asthma, CVA, Diabetes, HTN, Hypercholesterolemia, Seizures Denies: Alzheimer's Disease, Anemia, Anxiety, Arthritis, Atrial Fibrillation , Bipolar Disorder, Bronchitis, CAD, Cardia Arrhythmia, CHF, COPD, Crohn's Disease, Dementia, Depression, Diverticulitis, Emphysema, Fractures, Gastritis, Gall Bladder Disease, HIV, Hyperthyroidism, Hypothyroidism, Kidney Stones, Migraine, Mitral Valve Prolapse, Multiple Sclerosis, Osteoporosis, Pancreatitis , Paranoia, Parkinson's Disease, Peripheral Edema, Pneumonia, Post Traumatic Stress Disorder, Pulmonary Embolism, Chronic Kidney Disease, Rheumatoid Arthritis, Schizophrenia, Sickle Cell Disease, Sexually Transmitted Disease, Sleep Apnea, TIA - Surgical History Surgical History: Denies: Appendectomy, CABG, Carotid Endarterectomy, Cholecystectomy, Coronary Stent, Pacemaker, Tonsillectomy - Family History Family History: States: Unknown Family Hx - Social History Current smoker - smoking cessation education provided: No (Never smoked) Alcohol: None Drugs: Denies - Immunization History Hx Tetanus Toxoid Vaccination: Yes (>5yrs) Hx Influenza Vaccination: No Hx Pneumococcal Vaccination: No - Home Medications Home Medications: Ambulatory Orders Medication Instructions Recorded Pravastatin Sodium [Pravachol] 40 mg PO HS 11/09/15 amLODIPine [Norvasc] 10 mg PO DAILY 07/27/16 Aspirin [Ecotrin] 81 mg PO DAILY #30 tabec 07/28/16 Losartan Potassium 100 mg PO DAILY 02/04/17 Levetiracetam [Keppra] 1,500 mg PO BID 07/26/17 Loratadine [Claritin] 10 mg PO DAILY 07/26/17 Methyltetrahydrofolate Gluc[place] 30 mg PO DAILY 07/26/17 [Xaquil Xr] Mv,Min10/Folic Acid/D3/Ala/Lut 1 tab PO DAILY 07/26/17 [Strovite One Caplet] clonazePAM [clonAZEPAM] 0.5 mg PO HS 07/26/17 - Allergies Allergies/Adverse Reactions: Allergies Allergy/AdvReac Type Severity Reaction Status Date / Time No Known Allergies Allergy Verified 07/26/17 00:27 Review of Systems ROS Statement: Except As Marked, All Systems Reviewed And Found Negative (As per HPI, otherwise negative) Neurological: Positive for: Seizures Physical Exam - Reviewed Nursing Documentation Reviewed: Yes Vital Signs Reviewed: Yes - Physical Exam Appears: Positive for: Well, Non-toxic, No Acute Distress Head Exam: Positive for: ATRAUMATIC, NORMAL INSPECTION, NORMOCEPHALIC Skin: Positive for: Normal Color, Warm, Dry Eye Exam: Positive for: EOMI, Normal appearance, PERRL ENT: Positive for: Normal ENT Inspection Neck: Positive for: Normal, Painless ROM, Supple Cardiovascular/Chest: Positive for: Regular Rate, Rhythm. Negative for: Murmur Respiratory: Positive for: Normal Breath Sounds. Negative for: Accessory Muscle Use, Respiratory Distress Gastrointestinal/Abdominal: Positive for: Normal Exam, Bowel Sounds, Soft. Negative for: Tenderness Back: Positive for: Normal Inspection Extremity: Positive for: Other (Left upper and lower extremity power 2/5) Neurologic/Psych: Positive for: Alert, Oriented (x3) - Laboratory Results Result Diagrams: 07/26/17 00:50 07/26/17 00:50 - ECG ECG Rhythm: Positive for: Atrial Fibrillation (with RVR) Rate: 140 O2 Sat by Pulse Oximetry: 92 (RA) Pulse Ox Interpretation: Normal - Critical Care Total Time (In Min): 30 Medical Decision Making Medical Decision Making: Time: 00:53 Initial Impression: 57 y/o male with seizures Plan: EKG Urine dipstick Levetiracet Sodium chloride 1L IV Lanoxin 0.5mg IVP Sodium chloride 0.95 0.08L Cardizem 100mg IV Heplock insertion Accucheck Reevaluation Time: 01:[address] FINDINGS: Brain: There is a focus of decreased density and volume loss in the right frontal lobe, consistent with encephalomalacia from a remote infarct or other insult. Small chronic right occipital lobe infarct. There is mild diffuse cerebral atrophy present, consistent with this patient's age. There is mild diffuse heterogeneity of the white matter attenuation, consistent with chronic white matter ischemic changes. No hemorrhage. No acute infarct. Ventricles: The ventricular system demonstrates mild diffuse compensatory enlargement. Bones/joints: Unremarkable. No acute fracture. Soft tissues: Unremarkable. Sinuses: Unremarkable as visualized. No acute sinusitis. Mastoid air cells: Unremarkable as visualized. No mastoid effusion. IMPRESSION: Age-related atrophy and chronic white matter ischemic changes, with no evidence of an acute intracranial abnormality. Chronic right frontal and occipital lobe infarcts. --Labs show no clinically significiant abnormalities. --Patient will be admitted for further treatment and workup. --Case discussed with Dr. Cummings, who is covering Dr. Cronin. Clinical Impression: Seizure and A-Fib with RVR (new onset) Scribe Attestation: Documented by William Canada, acting as a scribe for Foreign Posadas MD. Scribe Attestation: All medical record entries made by the Scribe were at my direction and personally dictated by me. I have reviewed the chart and agree that the record accurately reflects my personal performance of the history, physical exam, medical decision making, and the department course for this patient. I have also personally directed, reviewed, and agree with the discharge instructions and disposition. Disposition - Clinical Impression Clinical Impression: Seizure disorder, Atrial fibrillation with RVR - Patient ED Disposition Is Patient to be Admitted: Yes Discussed With : Georgiana Gonsalez Doctor Will See Patient In The: Hospital Counseled Patient/Family Regarding: Studies Performed, Diagnosis - Disposition Disposition Time: 03:00 Condition: FAIR
[2017-07-26] MEDS ORDERED: Enoxaparin 80 mg Syringe SC STA (03:21)
[2017-07-26 07:17] LABS: ALT/SGPT 47 U/L (21-72); AST/SGOT 44 U/L (17-59); BLOOD UREA NITROGEN 18 mg/dl (9-20)
--- NOTE | 2017-07-26 08:27 | RAD ---
HISTORY: CVA, stroke COMPARISON: No prior. FINDINGS: LUNGS: No active pulmonary disease. PLEURA: No significant pleural effusion identified, no pneumothorax apparent. CARDIOVASCULAR: Heart is top normal in size. The aorta is normal in size. OSSEOUS STRUCTURES: No significant abnormalities. VISUALIZED UPPER ABDOMEN: Normal. OTHER FINDINGS: None. IMPRESSION: No active disease.
[2017-07-26 08:31] VITALS: TEMP 98.2
[2017-07-26] MEDS ORDERED: Multivitamin With Minerals Tab PO SCH (09:00)
[2017-07-26] MEDS ORDERED: [UNRECOGNIZED DRUG - OTHER] PO SCH (09:00)
[2017-07-26] MEDS ORDERED: Enoxaparin 80 mg Syringe SC SCH (09:00)
[2017-07-26 09:56] VITALS: RESP 12
[2017-07-26 12:50] VITALS: BP 103/53
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
--- NOTE | 2017-07-26 14:55 | CARD ---
APPROVED REPORT EKG Measurement Heart [id number] <Conclusion> Atrial fibrillation with rapid ventricular response Abnormal ECG
[2017-07-26] MEDS ORDERED: levETIRAcetam 1,000 MG in Sodium Chloride 0.9% 100 ML IVPB STA (16:03)
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
[2017-07-26] MEDS ORDERED: Pravastatin Sodium 40 MG TAB PO SCH (22:00)
--- NOTE | 2017-07-26 23:08 | CP.PCM.DIS ---
Provider - Provider Date of Admission: 07/26/17 03:22 Attending physician: Georgiana Gonsalez MD Time Spent in preparation of Discharge (in minutes): 15 Diagnosis - Discharge Diagnosis (1) Breakthrough seizure Status: Acute Priority: High (2) Atrial fibrillation with RVR Status: Acute Priority: High (3) CVA (cerebral vascular accident) Status: Chronic (4) DM2 (diabetes mellitus, type 2) Status: Chronic (5) HTN (hypertension) Status: Chronic Hospital Course - Lab Results Lab Results: Most Recent Lab Values WBC 9.0 K/uL (4.8-10.8) 07/26/17 00:50 RBC 5.44 Mil/uL (4.40-5.90) 07/26/17 00:50 Hgb 16.0 g/dL (12.0-18.0) D 07/26/17 00:50 Hct 47.0 % (35.0-51.0) 07/26/17 00:50 MCV 86.3 fl (80.0-94.0) D 07/26/17 00:50 MCH 29.3 pg (27.0-31.0) 07/26/17 00:50 MCHC 34.0 g/dL (33.0-37.0) 07/26/17 00:50 RDW 14.9 % (11.5-14.5) H 07/26/17 00:50 Plt Count 154 K/uL (130-400) 07/26/17 00:50 MPV 10.1 fl (7.2-11.7) 07/26/17 00:50 Neut % (Auto) 66.1 % (50.0-75.0) 07/26/17 00:50 Lymph % (Auto) 16.1 % (20.0-40.0) L 07/26/17 00:50 [place] % (Auto) 8.4 % (0.0-10.0) 07/26/17 00:50 Eos % (Auto) 8.2 % (0.0-4.0) H 07/26/17 00:50 Baso % (Auto) 1.2 % (0.0-2.0) 07/26/17 00:50 Neut # (Auto) 6.0 K/uL (1.8-7.0) 07/26/17 00:50 Lymph # (Auto) 1.5 K/uL (1.0-4.3) 07/26/17 00:50 [place] # (Auto) 0.8 K/uL (0.0-0.8) 07/26/17 00:50 Eos # (Auto) 0.7 K/uL (0.0-0.7) 07/26/17 00:50 Baso # (Auto) 0.1 K/uL (0.0-0.2) 07/26/17 00:50 PT 12.3 Seconds (9.8-13.1) 07/26/17 00:50 INR 1.1 (0.9-1.2) 07/26/17 00:50 APTT 36.8 Seconds (25.6-37.1) 07/26/17 00:50 Sodium 144 mmol/l (132-148) 07/26/17 00:50 Potassium 4.0 MMOL/L (3.6-5.0) 07/26/17 00:50 Chloride 102 mmol/L (98-107) 07/26/17 00:50 Carbon Dioxide 23 mmol/L (22-30) 07/26/17 00:50 Anion Gap 23 (10-20) H 07/26/17 00:50 BUN 18 mg/dl (9-20) 07/26/17 00:50 Creatinine 0.7 mg/dl (0.8-1.5) L 07/26/17 00:50 Est GFR ( Amer) > 60 07/26/17 00:50 Est GFR (Non-Af Amer) > 60 07/26/17 00:50 POC Glucose (mg/dL) 131 mg/dL (65-110) H 07/26/17 06:52 Random Glucose 265 mg/dL (75-110) H 07/26/17 00:50 Calcium 11.1 mg/dL (8.4-10.2) H 07/26/17 00:50 Total Bilirubin 0.7 mg/dl (0.2-1.3) 07/26/17 00:50 AST 44 U/L (17-59) 07/26/17 00:50 ALT 47 U/L (21-72) 07/26/17 00:50 Alkaline Phosphatase 59 U/L (38-126) 07/26/17 00:50 Troponin I 0.0360 ng/mL (0.00-0.120) 07/26/17 00:50 Total Protein 8.4 G/DL (6.3-8.2) H 07/26/17 00:50 Albumin 4.4 g/dL (3.5-5.0) 07/26/17 00:50 Globulin 4.0 gm/dL (2.2-3.9) H 07/26/17 00:50 Albumin/Globulin Ratio 1.1 (1.0-2.1) 07/26/17 00:50 Discharge Exam - Head Exam Head Exam: ATRAUMATIC, NORMAL INSPECTION, NORMOCEPHALIC Discharge Plan - Follow Up Plan Condition: FAIR Disposition: AGAINST MEDICAL ADVICE Instructions: Seizures, Adult (DC)
[2017-07-28 21:40] VITALS: PULSE 140; O2SAT 92
== END 2017-07-26 18:17 | disposition left against medical advice (07) | DRG 890 ==
LOC: H.ER 00:03 → H.ERHOLD 03:22 → H.ICU/CCU 05:56
PROVIDERS: ADMIT Internal Medicine; ATTEND Internal Medicine
DX: G40.909 Epilepsy, unspecified, not intractable, without status epilepticus (principal); I48.91 Unspecified atrial fibrillation; I69.354 Hemiplegia and hemiparesis following cerebral infarction affecting left non-dominant side; I10 Essential (primary) hypertension; E78.00 Pure hypercholesterolemia, unspecified; E11.9 Type 2 diabetes mellitus without complications; E78.5 Hyperlipidemia, unspecified; J45.909 Unspecified asthma, uncomplicated; G47.30 Sleep apnea, unspecified; Z79.82 Long term (current) use of aspirin